=== PATIENT | male | born 1990 | race Caucasian/White ===

== ENCOUNTER 2023-05-30 16:53 | Emergency (ER) | payer BC, SELFPAY ==
[2023-05-30 17:01] VITALS: BP 229/138
[2023-05-30 17:28] LABS: % Basophils 0.7 % (0-2); % Eosinophils 1.5 % (0-6); % Immature Granulocytes 0.4 % (0-0.5); % Lymphocytes 16.4 % (20.5-51.1); % Monocytes 10.4 % (1.7-9.3); % Neutrophils 70.6 % (42.2-75.2); Absolute Basophils 0.1 10^3/uL (0-0.2); Absolute Eosinophils 0.2 10^3/uL (0-0.7); Absolute Immature Granulocytes 0.1 10^3/uL (0-0.05); Absolute Lymphocytes 2.2 10^3/uL (1.2-3.4); Absolute Monocytes 1.4 10^3/uL (0.1-0.6); Absolute Neutrophils 9.3 10^3/uL (1.4-6.5); Hematocrit 41.8 % (39.0-52.0); Hemoglobin 14.7 g/dL (13.0-18.0); Mean Corp Hgb Conc. 35.2 g/dL (33.0-37.0); Mean Corpuscular Hgb 29.6 pg (27.0-31.0); Mean Corpuscular Volume 84.3 fL (80.0-94.0); Mean Platelet Volume 11.3 fL (7.4-10.4); Nucleated Red Blood Cells % 0 % (-); Platelet Count 258 10^3/uL (130-400); Red Blood Cell Count 4.96 10^6/uL (4.70-6.10); Red Cell Dist. Width 12.8 % (11.5-14.5); White Blood Cell Count 13.2 10^3/uL (4.8-10.8)
[2023-05-30 17:37] LABS: ALT (SGPT) 59 U/L (0-50); AST (SGOT) 37 U/L (17-59); Albumin 4.3 g/dl (3.5-5.0); Alkaline Phosphatase 82 U/L (38-126); Blood Urea Nitrogen 14 mg/dl (9-20); Calcium 9.3 mg/dl (8.4-10.2); Carbon Dioxide 26 mmol/L (22-30); Chloride 106 mmol/L (98-107); Glucose 117 mg/dl (70-99); Potassium 4.4 mmol/L (3.5-5.1); Sodium 138 mmol/L (135-145); Total Protein 6.8 g/dl (6.3-8.2); eGFR > 60.00
[2023-05-30 17:45] LABS: NT-proBNP 212 pg/ml
[2023-05-30 17:54] LABS: COVID-19 Antigen Negative (Negative)
[2023-05-30 18:03] VITALS: BP 182/96
[2023-05-30 18:05] VITALS: BP 182/96
--- NOTE | 2023-05-30 18:26 | ED.GENMED ---
History of Present Illness
General
Chief Complaint: Breathing Problem
Source: patient
Time Seen by Provider: 05/30/23 18:17
Travel History
Have you had any contact with someone who has COVID-19?: No
Do you have any symptoms of coronavirus? Fever > 100 degrees, chills, cough, shortness of breath, sore throat, loss of taste or smell, muscle aches, or headache?: Yes
Symptoms:: cough
History of Present Illness
History of Present Illness:
32-year-old male with past medical history of hypertension, diabetes, asthma presenting the emergency department for evaluation of a gradually worsening cough that started at the end of this past weekend into the beginning of the week, productive of
an intermittent clear to whitish sputum, wheezing, intermittent shortness of breath, sinus congestion with mild left-sided otalgia/fullness. Patient notes that about 1 month ago he was diagnosed with a URI and was treated with a course of
antibiotics (amoxicillin) and steroids which she completed and states felt fully better after completion of the medication. Patient notes usual triggers for his asthma include upper respiratory symptoms as well as seasonal change. He does note
that over the last few years his asthma would be exacerbated by the symptoms as opposed to exercise-induced. Patient denies any travel, known sick contacts, fevers, chills, rigors, chest pain, palpitations, diaphoresis, lower extremity edema.
Past History
Past History
ED Past Medical History: Asthma, HTN and IDDM
ED Past Surgical History: None
Social History
Tobacco: Non-smoker
Alcohol: Occasional
Drug: None
Personal: Single
Living: with family
Review of Systems
Review of Systems
All Other Systems: ROS reviewed and negative except as documented in HPI and ROS
Phy Exam
Physical Exam
Physical Exam:
GENERAL: Alert , in no apparent distress
EYE: conjunctiva clear
NECK: Supple, no significant adenopathy.
ENT: o/p clr, mmm.
CARDIAC: Regular rate and rhythm
LUNGS: Wheezing to the left mid and lower lung, slightly diminished at the right base, no acute respiratory distress, no accessory muscle use, speaking full sentences with no dyspnea noted
NEUROLOGICAL: Alert and oriented
SKIN: Warm and dry, skin intact.
MUSCULOSKELETAL: well perfused. No edema
PSYCH: Normal and appropriate interaction.
Scores
Heart Failure Risk
Heart Failure Risk Score: Not Applicable
Heart Score for Chest Pain Patients
STEMI patient?: Not applicable
Withdrawal Assessment of Alcohol
Withdrawal Assessment Completed?: Not applicable
Course
Orders/Labs/Results
Orders:
Orders
05/30/23 17:04
EKG [Electrocardiogram (*1)] Urgent
Reason for Study: Shortness of Breath
EKG- Treatment ONCE
05/30/23 17:13
COVID-19 Antigen Urgent
Source: Nasal Swab
Complete Blood Count/With Diff Urgent
Comprehensive Metabolic Panel Urgent
NT-proBNP Urgent
Influenza A+B Rapid Molecular Urgent
MARKO Source: Nasal Swab
Specimen Description:
05/30/23 18:26
Ipratropium/Albuterol Sulfate [Duoneb] 3 ml INH R NOW ONE
Prednisone [Deltasone] 50 mg PO NOW STA
CR Chest - 2 Views Urgent
Comment:
Reason For Exam: cough, SOB
Abnormal Lab Results
05/30/23
17:13
WBC 13.2 H 10^3/uL
(4.8-10.8)
MPV 11.3 H fL
(7.4-10.4)
Abs Immat Gran (auto) 0.1 H 10^3/uL
(0-0.05)
Absolute Neuts (auto) 9.3 H 10^3/uL
(1.4-6.5)
Absolute Monos (auto) 1.4 H 10^3/uL
(0.1-0.6)
Lymphocytes % 16.4 L %
(20.5-51.1)
Monocytes % 10.4 H %
(1.7-9.3)
Glucose 117 H mg/dl
(70-99)
Total Bilirubin 2.0 H mg/dl
(0.2-1.3)
ALT 59 H U/L
(0-50)
05/30/23 17:13
05/30/23 17:13
Vital Signs
Initial and Last Documented VS:
Initial Vital Signs
Temp Pulse Resp BP Pulse Ox
98.6 F 95 18 229/138 97
05/30/23 17:01 05/30/23 17:01 05/30/23 17:01 05/30/23 17:01 05/30/23 17:01
Last Documented Vital Signs
Temp Pulse Resp BP Pulse Ox
99.2 F 96 15 182/96 96
05/30/23 18:05 05/30/23 20:00 05/30/23 19:45 05/30/23 18:05 05/30/23 18:10
MDM/Problems Addressed
Differential Diagnosis Includes:
COVID, flu, other viral etiology, pneumonia, allergies, asthma exacerbation
MDM/Problems Addressed:
32-year-old male presenting emergency department for evaluation of gradually worsening cough over the last week. Patient was recently treated for a upper respiratory infection with amoxicillin and steroid little less than 1 month ago. Also notes
he had pneumonia in December. Presently he is without any fevers. He does have wheezing on exam. Will treat with a DuoNeb and prednisone here. Chest x-ray ordered. Patient's initial blood pressure on arrival was noted. It was improved at time
of my exam although still noted to be elevated and will certainly need to be followed up by the primary care provider. Labs from triage were noted to be relatively unremarkable outside of a mild leukocytosis. There is no leftward shift. Patient
has a nonspecific mildly elevated ALT. COVID and flu testing were negative.
Chronic conditions affecting care: DM and HTN
Acute Exacerbation and/or Progression of Chronic Illness: HTN
*Radiology
Radiology exam reviewed: preliminary read by ED provider (No effusions or consolidations)
*Pulse Oximetry
Patient hypoxic: no
*EKG
Interpreted by ED Provider?: Yes
Comparison EKG: no comparison EKG present
Heart Rate: 95
Rate: normal
Rhythm: sinus
Boling: normal axis
Ischemia: no ischemia
*[employer] Product [employer] Interpretation
Rate: normal
Rhythm: sinus
*Critical Care Note
Total Time (30-74mins, 75-104mins- exclusive of procedures): Not Applicable
Patient Management
Social determinants of health affecting care: Strong social support
Escalation/DeEscalation of care consider admission/obs:
Patient's chest x-ray is unremarkable without any consolidations or effusions. He does feel improved following the nebulizer treatment. Will send for prescription of doxycycline for community-acquired pneumonia and a Medrol Dosepak. Patient will
continue using his inhaler and nebulizer machine as needed. Advised to follow-up closely with primary care early in the week next week. Aware of return precautions to the emergency department.
ED Attending Note
-
Portions of this chart may have been created with voice recognition software.� Occasional wrong word or��sound alike� substitutions may have occurred due to the inherent limitations of voice recognition software.
Discharge Plan
Departure
Patient Disposition: Home (Routine Discharge)
Date of Disposition: 05/30/23
Time of Disposition: 19:55
Patient with high blood pressure during this ER visit?: Yes
Discharge Problem:
CAP (community acquired pneumonia), Hypertension
Instructions: Pneumonia, Adult (DC)
Prescriptions:
New
doxycycline hyclate 100 mg tablet
100 mg PO BID 10 Days Qty: 20 0RF
methylprednisolone [Medrol (Mandeep)] 4 mg tablets,dose pack
4 mg PO DIRECTED Qty: 21 0RF
Interventions
Interventions:
*Risk Screen - Suicide Last Done: 05/30/23 17:01
*General Assessment Last Done: 05/30/23 17:01
*Neglect/Abuse Screening Last Done: 05/30/23 17:01
ED- Fall Risk Assessment Last Done: 05/30/23 18:10
*ED COVID-19 Vaccine History Last Done: 05/30/23 17:01
ED- Cardiac Assessment Last Done: 05/30/23 18:10
ED- Pulmonary Assessment Last Done: 05/30/23 18:10
Discharge Date and Time
Print Language: [place]ET[place]ESE
[2023-05-30] MEDS: DELTASONE 50 MG PO (18:40)
[2023-05-30] MEDS: DUONEB 3 ML INH (19:01)
== END 2023-05-30 20:24 | disposition home or self-care (01) ==
LOC: EMR 16:53
PROVIDERS: EMERGENCY PHYSICIAN Student in an Organized Health Care Education/Training Program; FAMILY PHYSICIAN Physician Assistant Medical
DX: J18.9 Pneumonia, unspecified organism (principal); I10 Essential (primary) hypertension; Z11.52 Encounter for screening for COVID-19; R74.01 Elevation of levels of liver transaminase levels; E11.9 Type 2 diabetes mellitus without complications; J45.909 Unspecified asthma, uncomplicated; Z87.01 Personal history of pneumonia (recurrent); Z79.4 Long term (current) use of insulin; Z88.2 Allergy status to sulfonamides
CPT/HCPCS: 99284; 94640; 71046; 80053; 83880; 85025; 87502; 87811; 93005

== ENCOUNTER → 2023-07-24 17:59 | Outpatient (REF) | payer BC, SELFPAY | LOC: RAD 17:59 | PROVIDERS: ATTENDING PHYSICIAN Physician Assistant Medical | DX: R36.1 Hematospermia (principal) | CPT/HCPCS: 76870; 93976 ==

== ENCOUNTER 2024-01-10 11:05 | Emergency (ER) | payer BC, SELFPAY ==
[2024-01-10 11:07] VITALS: BP 244/148
[2024-01-10 11:26] VITALS: BP 171/98
[2024-01-10 11:34] LABS: Glucose - Point of Care 157 mg/dl (70-99)
[2024-01-10 11:40] VITALS: BMI 45.7
[2024-01-10] MEDS: PERCOCET 5/325 1 TABLET PO (11:41)
--- NOTE | 2024-01-10 12:22 | ED.GENMED ---
History of Present Illness
General
Chief Complaint: Musculo-Skeletal Complaint
Source: patient
Exam Limitations: none
Time Seen by Provider: 01/10/24 11:15
Nursing documentation reviewed up to this point in time: agreed with
History of Present Illness
History of Present Illness:
Patient is a 33-year-old male with a history of ajp-njntoqd-cvrpbtjzd diabetes diet controlled and on Mounjaro, history of hypertension presents with atraumatic right-sided hip pain which wraps around into his right upper thigh/groin area for the
past 2 days. Patient says prior to that he had some right sided lower back pain which he is not sure if it was from an injury. Patient does lift heavy steel for living. He was using a TENS unit and he has been taking ibuprofen and Tylenol. He
feels worse pain in the right hip region when he sits and better with standing. He last took a dose of ibuprofen 600 mg about an hour before arrival. He has not noticed that his legs been swollen. He denies any numbness or tingling down his legs,
incontinence, urinary symptoms, abdominal pain, fevers or chills.
Patient did vomit once yesterday but thinks it was related to something he ate. He does not have any nausea or vomiting today.
Past History
Past History
ED Past Medical History: Asthma, HTN and IDDM
ED Past Surgical History: None
Social History
Tobacco: Non-smoker
Alcohol: Occasional
Drug: None
Personal: Single
Living: with family
Review of Systems
Review of Systems
Allergies reviewed?: Yes
All Other Systems: Not applicable
Phy Exam
Physical Exam
Physical Exam:
GENERAL: Alert , in no apparent distress
EYE: pupils equal and reactive
NECK: Supple
ENT: o/p clr, mmm.
CARDIAC: Regular rate and rhythm .
LUNGS: Clear breath sounds bilaterally, no acute respiratory distress, no wheezes/rales/rhonchi
ABDOMEN: Soft, without focal tenderness, no r/g, no cvat, normal bowel sounds
NEUROLOGICAL: Alert and oriented, no focal neuro deficits
SKIN: Warm and dry, skin intact.
MUSCULOSKELETAL: Inspection of the right lower extremity reveals that the right calf appears slightly larger than the left, there is some varicosities but no tenderness. He has a normal pulse and range of motion of his knee and ankle. His hip on
the right is slightly tender at the PSIS and greater trochanter. He mostly has pain with hip flexion and internal rotation. He had a positive straight leg raise with radiation from his back/hip into his right upper thigh at 15 degrees. There is
no weakness. Patient had slight tenderness to his back on the right lateral lumbar and paraspinal muscles as well as the SI joint
PSYCH: Normal and appropriate interaction.
Course
Orders/Labs/Results
Orders:
Orders
01/10/24 11:12
Hip, Right 2-3 Views [CR Hip - RT w/wo Pel 2-3 Vw*] Urgent
Comment:
Reason For Exam: pain
Include a pelvis x-ray?: Yes
01/10/24 11:35
Oxycodone/Acetaminophen [Percocet 5/325] 1 tablet PO NOW STA
Lumbar Spine Complete, 4 View [CR Lumbar Spine Comp Min 4 Vw*] Urgent
Comment:
Reason For Exam: pain back to right thigh
US Periph Venous LOWER Ext RT Urgent
Comment:
Reason For Exam: pain in right thigh, swelling in righ tleg
01/10/24 13:39
Prednisone [Deltasone] 50 mg PO NOW STA
Abnormal Lab Results
01/10/24
11:34
POC Glucose 157 H mg/dl
(70-99)
Vital Signs
Initial and Last Documented VS:
Initial Vital Signs
Temp Pulse Resp BP Pulse Ox
36.8 C 93 20 244/148 98
01/10/24 11:07 01/10/24 11:07 01/10/24 11:07 01/10/24 11:07 01/10/24 11:07
Last Documented Vital Signs
Temp Pulse Resp BP Pulse Ox
36.8 C 78 20 184/93 98
01/10/24 11:07 01/10/24 13:38 01/10/24 11:07 01/10/24 13:38 01/10/24 11:07
MDM/Problems Addressed
Differential Diagnosis Includes:
Sciatica, lumbar radiculopathy, arthritis, bursitis, DVT
ED Attending Note
-
Portions of this chart may have been created with voice recognition software.� Occasional wrong word or��sound alike� substitutions may have occurred due to the inherent limitations of voice recognition software.
Discharge Plan
Departure
Patient Disposition: Home (Routine Discharge)
Date of Disposition: 01/10/24
Time of Disposition: 13:29
Patient with high blood pressure during this ER visit?: No
Discharge Problem:
Acute pain of right hip, Acute lumbar radiculopathy
Instructions: Radiculopathy (DC), BLOOD PRESSURE
Prescriptions:
New
prednisone 50 mg tablet
50 mg PO DAILY Qty: 4 0RF
oxycodone 5 mg tablet
5 mg PO BID PRN (Reason: Pain) Qty: 7 0RF
No Action
doxycycline hyclate 100 mg tablet
100 mg PO BID 10 Days Qty: 20 0RF
methylprednisolone [Medrol (Mandeep)] 4 mg tablets,dose pack
4 mg PO DIRECTED Qty: 21 0RF
Referrals:
Med Prince MD [Family Provider] - Follow up in 2-3 days
Stand Alone Forms: Return to Work
Activity Restrictions/Additional Instructions:
IT SEEMS THAT THE PAIN MAY BE COMING FROM YOUR BACK AND MAYBE INVOLIVNG THE NERVES THAT INNERVATE YOUR LEG
YOUR XRAYS OF YOUR HIP ARE NORMAL
YOU HAD MILD DEGENERATIVE CHANGES IN YOUR LOWER BACK
TO TREAT THE POSSIBLE INFLAMMATION, TRY PREDNISONE 50 MG OCNE A DAY FOR 4 DAYS
AVOID SUGARY/CARBS WHILE ON STEROIDS
MONITOR YOUR BLOOD SUGAR
TAKE TYLENOL 3 TIMES A DAY FOR PAIN NEEDED
IF PAIN IS SEVERE YOU CAN TRY OXYCODONE 5 MG
TAKE A STOOL SOFTENER TO PREVENT CONSTIPATION IF YOU NEED THE OXYCODONE
FOLLOW UP WITH YOUR FAMILY DOCTOR THIS WEEK
RETURN FOR: SEVERE PAIN, WEAKNESS IN THE LEG, SEVERE NUMBNESS, INCONTIENCE, FEVER, ETC
YOUR BLOOD PRESSURE WAS ELEVATED, WHICH COULD BE FROM PAIN
MAKE SURE TO FOLLOW UP WITH YOUR DOCOTR.
Interventions
Interventions:
*Risk Screen - Suicide Last Done: 01/10/24 11:07
*General Assessment Last Done: 01/10/24 11:31
*Neglect/Abuse Screening Last Done: 01/10/24 11:07
ED- Fall Risk Assessment Last Done: 01/10/24 11:28
*ED COVID-19 Vaccine History Last Done: 01/10/24 11:31
*Nursing Disposition Last Done: 01/10/24 13:42
ED-Musculoskeletal Assessment Last Done: 01/10/24 11:28
Discharge Date and Time
Discharge Date/Time: 01/10/24 13:47
Print Language: NEP[place]ESE
[2024-01-10 13:38] VITALS: BP 184/93
[2024-01-10] MEDS: DELTASONE 50 MG PO (13:43)
== END 2024-01-10 13:47 | disposition home or self-care (01) ==
LOC: EMR 11:05
PROVIDERS: EMERGENCY PHYSICIAN Emergency Medicine; FAMILY PHYSICIAN Family Medicine
DX: M25.551 Pain in right hip (principal); M54.16 Radiculopathy, lumbar region; M79.651 Pain in right thigh; R11.10 Vomiting, unspecified; M54.50 Low back pain, unspecified; X50.0XXA Overexertion from strenuous movement or load, initial encounter; Y93.89 Activity, other specified; Y92.89 Other specified places as the place of occurrence of the external cause; Y99.0 Civilian activity done for income or pay; I83.91 Asymptomatic varicose veins of right lower extremity; I10 Essential (primary) hypertension; E11.9 Type 2 diabetes mellitus without complications; J45.909 Unspecified asthma, uncomplicated; Z79.4 Long term (current) use of insulin; Z88.2 Allergy status to sulfonamides
CPT/HCPCS: 99284; 72110; 73502; 82962; 93971

== ENCOUNTER → 2024-03-25 12:43 | Outpatient (REF) | payer BC, SELFPAY | LOC: RAD 12:43 | PROVIDERS: ATTENDING PHYSICIAN Anesthesiology; FAMILY PHYSICIAN Physician Assistant Medical | DX: H05.9 Unspecified disorder of orbit (principal) | CPT/HCPCS: 70030 ==